=== PATIENT | male | born 1955 | race Caucasian/White ===

== ENCOUNTER 2018-02-18 07:26 | Inpatient (IN) | payer BC, OTHER ==
[~2018-02-18] VITALS: Ht 185.4 cm; Wt 61.2 kg
[2018-02-18 11:00] VITALS: BP 133/83
[2018-02-18] MEDS ORDERED: THIAMINE HCL 200 MG/2 ML VIAL IM ONE (11:00)
[2018-02-18] MEDS ORDERED: ACETAMINOPHEN 325 MG TABLET PO PRN (11:00)
[2018-02-18] MEDS ORDERED: LOPERAMIDE HCL 2 MG CAPSULE PO PRN ×2 (11:00)
[2018-02-18] MEDS ORDERED: DIAZEPAM 5 MG TABLET PO PRN (11:00)
[2018-02-18] MEDS ORDERED: LORAZEPAM 2 MG/1 ML VIAL IM PRN (11:00)
[2018-02-18] MEDS ORDERED: IBUPROFEN 600 MG TABLET PO PRN (11:00)
[2018-02-18] MEDS ORDERED: 5 DAY TAPER VALIUM-SERENITY PROTOCOL PO PRN (11:00)
[2018-02-18] MEDS ORDERED: MAGNESIUM HYDROXIDE 30 ML LIQUID UDC PO PRN (11:00)
[2018-02-18] MEDS ORDERED: MAG HYDROX/AL HYDROX/SIMETH 30 ML LIQUID UDC PO PRN (11:00)
[2018-02-18] MEDS ORDERED: MIRALAX 17 GM POWD.PACK PO PRN (11:00)
[2018-02-18] MEDS ORDERED: diphenhydrAMINE 50 MG CAPSULE PO PRN (11:00)
[2018-02-18] MEDS: FOLIC ACID 1 MG TABLET PO SCH (11:27)
[2018-02-18] MEDS: THIAMINE HCL 100 MG TABLET PO SCH (11:27)
[2018-02-18] MEDS: MULTIVITAMINS,THERAPEUTIC TABLET PO SCH (11:27)
[2018-02-18 12:00] VITALS: BP 134/89
[2018-02-18 12:00] LABS: BASOPHILS # (AUTO) 0.1 K/uL (0.0-8.0); EOSINOPHILS # (AUTO) 0.1 K/uL (0.0-0.7); EOSINOPHILS % (AUTO) 1.7 % (0.0-7.0); HEMATOCRIT 43.4 % (36.7-47.1); HEMOGLOBIN 15.1 g/dL (12.5-16.3); LYMPHOCYTES # (AUTO) 2.9 K/uL (20.0-40.0); MEAN CORPUSCULAR HEMOGLOBIN 34.7 uug (23.8-33.4); MEAN CORPUSCULAR HGB CONC 35 g/dL (32.5-36.3); MEAN CORPUSCULAR VOLUME 99.8 fL (73.0-96.2); MONOCYTES # (AUTO) 0.7 K/uL (2.0-10.0); MONOCYTES % (AUTO) 11.7 % (0.0-11.0); NEUTROPHILS # (AUTO) 1.9 K/uL (1.8-8.9); NEUTROPHILS % (AUTO) 34.6 % (38.5-71.5); PLATELET COUNT (AUTO) 115 K/uL (152-348); RED BLOOD CELL COUNT(AUTO) 4.35 MIL/uL (4.06-5.63); WHITE BLOOD COUNT (AUTO) 5.6 K/uL (3.6-10.2)
[2018-02-18] MEDS ORDERED: QUETIAPINE FUMARATE 25 MG TABLET PO PRN ×2 (12:30→15:00)
[2018-02-18 12:35] LABS: BILIRUBIN,TOTAL 1.2 mg/dL (0.2-1.0); CREATININE 0.7 mg/dL (0.6-1.3); MAGNESIUM 1.4 mg/dL (1.8-2.4); POTASSIUM 3.3 mmol/L (3.5-5.1); TOTAL PROTEIN, SERUM 7.6 g/dL (6.4-8.2)
[2018-02-18 12:48] LABS: THYROID STIMULATING HORMONE 0.587 mIU/mL (0.358-3.740)
[2018-02-18] MEDS ORDERED: MAGNESIUM OXIDE 400 MG TABLET PO ONE (13:30)
[2018-02-18] MEDS ORDERED: POTASSIUM CHLORIDE 20 MEQ TAB.PRT.SR PO ONE (13:30)
[2018-02-18] MEDS: DIAZEPAM 10 MG TABLET PO PRN ×2 (13:47→19:48)
[2018-02-18 14:55] LABS: *AMPHETAMINE, URINE NEGATIVE (NEGATIVE); *BARBITURATE, URINE NEGATIVE (NEGATIVE); *CANNABINOID, URINE NEGATIVE (NEGATIVE); *COCCAINE, URINE NEGATIVE (NEGATIVE); *OPIATE, URINE NEGATIVE (NEGATIVE); *PHENCYCLIDINE SCREEN,URINE NEGATIVE (NEGATIVE)
[2018-02-18 16:00] VITALS: BP 124/69
[2018-02-18] MEDS: CLONIDINE HCL 0.1 MG TABLET PO PRN (16:25)
[2018-02-18] MEDS: QUETIAPINE FUMARATE 25 MG TABLET PO PRN (17:24)
[2018-02-18 20:00] VITALS: BP 96/73
[2018-02-19] VITALS: BP 104/64
[2018-02-19 04:00] VITALS: BP 125/88
[2018-02-19] MEDS: DIAZEPAM 10 MG TABLET PO PRN ×2 (04:42→10:07)
[2018-02-19 08:00] VITALS: BP 133/82
[2018-02-19] MEDS: DIAZEPAM 10 MG TABLET PO SCH ×4 (08:28→21:00)
[2018-02-19] MEDS: MULTIVITAMINS,THERAPEUTIC TABLET PO SCH (08:28)
[2018-02-19] MEDS: THIAMINE HCL 100 MG TABLET PO SCH (08:28)
[2018-02-19] MEDS: FOLIC ACID 1 MG TABLET PO SCH (08:28)
[2018-02-19] MEDS ORDERED: TUBERCULIN,PURIF.PROT.DERIV. 5 TU/0.1 ML TEST ID ONE (09:00)
[2018-02-19 09:32] LABS: BILIRUBIN,TOTAL 2.2 mg/dL (0.2-1.0); CREATININE 0.8 mg/dL (0.6-1.3); POTASSIUM 3.5 mmol/L (3.5-5.1); TOTAL PROTEIN, SERUM 7.1 g/dL (6.4-8.2)
[2018-02-19] MEDS ORDERED: MAGNESIUM OXIDE 400 MG TABLET PO ONE ×2 (09:45→21:00)
[2018-02-19 12:00] VITALS: BP 121/82
[2018-02-19] MEDS ORDERED: DIAZEPAM 5 MG TABLET PO PRN (13:30)
[2018-02-19] MEDS ORDERED: DIAZEPAM 10 MG TABLET PO PRN ×2 (13:30)
[2018-02-19 14:07] LABS: HEPATITIS B SURFACE AG Negative (Negative)
[2018-02-19] MEDS: QUETIAPINE FUMARATE 25 MG TABLET PO PRN (15:37)
[2018-02-19 16:00] VITALS: BP 108/81
[2018-02-19 20:00] VITALS: BP 121/92
[2018-02-19] MEDS: QUETIAPINE FUMARATE 25 MG TABLET PO SCH ×2 (21:00→22:57)
[2018-02-19] MEDS: CLONIDINE HCL 0.1 MG TABLET PO PRN (22:57)
[2018-02-20 08:00] VITALS: BP 91/73
[2018-02-20] MEDS: THIAMINE HCL 100 MG TABLET PO SCH (08:07)
[2018-02-20] MEDS: FOLIC ACID 1 MG TABLET PO SCH (08:07)
[2018-02-20] MEDS: MULTIVITAMINS,THERAPEUTIC TABLET PO SCH (08:07)
[2018-02-20] MEDS: DIAZEPAM 10 MG TABLET PO SCH ×3 (08:07→20:27)
[2018-02-20 12:55] VITALS: BP 109/78
[2018-02-20 16:00] VITALS: BP 110/80
[2018-02-20 20:00] VITALS: BP 135/87
[2018-02-20] MEDS ORDERED: QUETIAPINE FUMARATE 25 MG TABLET PO SCH (21:00)
[2018-02-20] MEDS: QUETIAPINE FUMARATE 25 MG TABLET PO PRN (22:47)
[2018-02-21 08:00] VITALS: BP 110/84
[2018-02-21] MEDS: FOLIC ACID 1 MG TABLET PO SCH (08:04)
[2018-02-21] MEDS: THIAMINE HCL 100 MG TABLET PO SCH (08:04)
[2018-02-21] MEDS: MULTIVITAMINS,THERAPEUTIC TABLET PO SCH (08:04)
[2018-02-21] MEDS: DIAZEPAM 5 MG TABLET PO SCH ×2 (08:05→12:05)
[2018-02-21 12:20] VITALS: BP 122/90
[2018-02-22] MEDS ORDERED: DIAZEPAM 5 MG TABLET PO SCH (09:00)
[2018-02-23] MEDS ORDERED: DIAZEPAM 5 MG TABLET PO SCH (09:00)
== END 2018-02-21 13:30 | disposition left against medical advice (07) | DRG 894 ==
LOC: SRC 09:56
PROVIDERS: ADMIT Family Medicine Addiction Medicine; ATTEND Family Medicine Addiction Medicine
PROC: HZ2ZZZZ Detoxification Services for Substance Abuse Treatment (ICD-10-PCS; principal; 2018-02-18)
PROC: HZ41ZZZ Group Counseling for Substance Abuse Treatment, Behavioral (ICD-10-PCS; 2018-02-20)
DX: F10.230 Alcohol dependence with withdrawal, uncomplicated (principal); Y90.9 Presence of alcohol in blood, level not specified; E83.42 Hypomagnesemia; E87.6 Hypokalemia; F32.9 Major depressive disorder, single episode, unspecified; F41.9 Anxiety disorder, unspecified; F17.210 Nicotine dependence, cigarettes, uncomplicated; F43.21 Adjustment disorder with depressed mood
CPT/HCPCS: 36415; 70030-TC; 80307; 83690; 83735; 84443; 85025; 86580; 86592; 86705; 86803; 87340; 87806; G0480; J3411; Q0163